=== PATIENT | female | born 1950 | race Caucasian/White ===

== ENCOUNTER 2021-01-28 06:56 | Day surgery (SDC) | payer OTHER ==
[~2021-01-28 06:56] MED LIST: COZAAR100 MG PO; NORVASC10 MG PO
== END 2021-01-28 10:40 | disposition home or self-care (01) ==
LOC: AMB-ENDOS 06:56
PROVIDERS: ATTEND Colon & Rectal Surgery
DX: K57.32 Diverticulitis of large intestine without perforation or abscess without bleeding (principal); K64.0 First degree hemorrhoids; Z20.822 Contact with and (suspected) exposure to COVID-19